=== PATIENT | female | born 1990 | race American Indian/Alaskan Native ===

== ENCOUNTER 2017-10-27 18:22 | Emergency (ER) | payer MEDICAID ==
[2017-10-27 18:33] VITALS: BP 102/54
--- NOTE | 2017-10-27 22:00 | Emergency Department Report ---
HPI - General Chief Complaint: Medical Clearance Time Seen by Provider: 10/27/17 21:55 - HPI HPI: Patient gives the hospital reports that she thinks she is . She says she is getting hot, nauseous and dizzy and emotional. States positive test was not home and now she just wants another one here. She denies any abdominal pain, fever or chills, cough, vaginal bleeding, discharge, urinary burning, frequency or urgency. Denies any vomiting. Last menstrual period per patient was in May 2017. Denies any back pain. Patient says she is here to get a test. ED Past Medical Hx - Past Medical History Previous Medical History?: No Hx Hypertension: No Hx Congestive Heart Failure: No Hx Diabetes: No Hx Deep Vein Thrombosis: No Hx Renal Disease: No Hx Sickle Cell Disease: No Hx Seizures: No Hx Asthma: No Hx COPD: No Hx HIV: No - Surgical History Past Surgical History?: No Additional Surgical History: C/S - Family History Family history: no significant - Social History Smoking Status: Never Smoker Substance Use Type: None - Medications Home Medications: Home Medications Medication Instructions Recorded Confirmed Last Taken Type Valacyclovir HCl [valACYclovir] 2 tab PO DAILY 03/09/17 03/09/17 Unknown History Vit No.130/Iron/Folic 1 each PO QAM 30 Days #30 tablet 10/27/17 Unknown Rx [ Tablet] ED Review of Systems ROS: Stated complaint: NAUSEA AND DIZZY Other details as noted in HPI Comment: All other systems reviewed and negative Constitutional: no symptoms reported, other ( here for test) Eyes: denies: eye discharge ENT: denies: throat pain, congestion Respiratory: no symptoms reported Cardiovascular: denies: chest pain, palpitations, dyspnea on exertion, edema, syncope, paroxysmal nocturnal dyspnea Gastrointestinal: nausea. denies: abdominal pain, vomiting, diarrhea, constipation, hematemesis, melena, hematochezia Genitourinary: abnormal menses. denies: urgency, dysuria, frequency, hematuria , discharge, dyspareunia Musculoskeletal: denies: back pain, joint swelling, arthralgia, myalgia Skin: denies: rash Neurological: other (reports that she has this anesthetized but none now). denies: headache, weakness, numbness, paresthesias, confusion, abnormal gait, vertigo Psychiatric: other (she reports that she is emotional) Physical Exam - Physical Exam Vital Signs: Vital Signs 10/27/17 18:30 Temperature 98.4 F Pulse Rate 85 Respiratory 16 Rate Blood Pressure 102/54 O2 Sat by Pulse 100 Oximetry General: This is a 27-year-old female well-nourished well-developed in no acute distress Physical Exam: Head: Normocephalic, atraumatic, no abrasion, no bruising and no contusion. Eyes: Biateral pupils equal and reactive to light, bilateral EOM intact.. Bilateral conjunctival and sclera without injection, normal accommodation. No nystagmus Neck: Supple, No Cervical adenopathy, full range of motion and no C-spine tenderness. Cardiovascular: S1, S2. Regular rate and rhythm. No murmur. Capillary refill is less then 3 seconds. Lungs: Clear to auscultate bilaterally. No rhonchi, wheezes or rales. No chest wall tenderness. No chest contusion. MSK: Strength 5/5 in all extremities. No joint deformity or crepitus. Normal inspection. Full range of motion to all extremities. No laceration, abrasion or ecchymotic area noted. Abdomen: Non-tender to palpate in all quadrants, no guarding or rebound tenderness, positive bowel sounds in all quadrants. No CVA tenderness. No hernia, bruit or mass. No rigidity or distention. Extremities: No clubbing, cyanosis or edema. +2 pulses. No neurovascular compromise Skin: Clean, dry and intact. No rash or lesions. Neurological: GCS at 15, Pt is alert and oriented 3 speech is clear period. Bilateral hand risk professional strong and equal. Normal gait. Negative Romberg and no pronator drift. Normal Reflexes. No motor or sensory deficit Back: No vertebral tenderness, no paraspinal tenderness. Ambulates without any difficulties. Psych: Normal mood and behavior ED Course Vital Signs 10/27/17 18:30 Temperature 98.4 F Pulse Rate 85 Respiratory 16 Rate Blood Pressure 102/54 O2 Sat by Pulse 100 Oximetry - Reevaluation(s) Reevaluation #1: 10/27/17 22:00 Patient on uneventful ED stay she is able to tolerate liquids well. ED Medical Decision Making - Lab Data Lab Results 10/27/17 Range/Units 18:58 HCG, Qual Positive (Negative) - Medical Decision Making ED Course:Pt here for confirmation of . Due to positive home tests, occasional dizziness and emotional instability, nausea without any vomiting, had flashes. She is not having any vaginal bleeding, vaginal discharge, urinary burning frequency urgency, abdominal or back pain. Patient physical exam is normal. Urine test is positive. I discussed the patient herself and that she needs to follow up with [facility] and start taking vitamin. I discussed with her that I'll refer her to [facility] physician. I told her that she needs to increase her fluid intake to prevent dehydration. She voiced understanding and patient discharged home in stable condition with prescription for vitamin and multiple [facility] referrals. Critical care attestation.: If time is entered above; I have spent that time in minutes in the direct care of this critically ill patient, excluding procedure time. ED Disposition Clinical Impression: Nausea alone Qualifiers: Weeks of gestation: unspecified Qualified Code(s): Z34.90 - Encounter for supervision of normal , unspecified, unspecified trimester Disposition: - TO HOME OR SELFCARE Is pt being admited?: No Does the pt Need Aspirin: No Condition: Stable Instructions: Morning Sickness (ED), (ED), Vitamins (By mouth) Additional Instructions: Please refer to discharge instructions and morning sickness and . Please increase her fluid intake to prevent dehydration Urine test indicates that you're so he'll need to follow-up with [facility] for care. If you develop abdominal pain, vaginal discharge, vaginal bleeding in, back pain , urinary burning frequency or urgency, vomiting and unable to keep fluid down and he can return to the emergency room otherwise he can follow up with [facility] that you were referred to for care. Taking vitamin this is [id number]. Prescriptions: Vit No.130/Iron/Folic [ Tablet] 1 each PO QAM 30 Days #30 tablet Referrals: [facility] [Outside] - 10/29/17 LUPILLO CLOUD MD [Staff Physician] - 10/29/17 Forms: Work/School Release Form(ED)
== END 2017-10-27 22:20 | disposition home or self-care (01) ==
LOC: ED 18:22
DX: Z34.90 Encounter for supervision of normal pregnancy, unspecified, unspecified trimester (principal); R11.0 Nausea
CPT/HCPCS: 36415; 84703; 99283